=== PATIENT | female | born 1985 | race Caucasian/White ===

== ENCOUNTER 2021-03-19 20:18 | Emergency (ER) | payer OTHER ==
[~2021-03-19] VITALS: Ht 175.3 cm; Wt 117.9 kg
[~2021-03-19 20:18] MED LIST: CEPHALEXIN500 MG PO; KEFLEX500 MG PO; LEVOTHYROXINE175 MCG PO; LEVOTHYROXINE200 MCG PO; LEVOTHYROXINE75 MCG PO; NORCO 5-325 TA1 EACH PO; SEPTRA DS TABL1 EACH PO
[2021-03-19] MEDS ORDERED: LISINOPRIL10 MG PO (20:38)
== END 2021-03-19 21:14 | disposition home or self-care (01) ==
LOC: ED 20:18
DX: S60.222A Contusion of left hand, initial encounter (principal); W01.10XA Fall on same level from slipping, tripping and stumbling with subsequent striking against unspecified object, initial encounter; F17.200 Nicotine dependence, unspecified, uncomplicated; Z79.899 Other long term (current) drug therapy
CPT/HCPCS: 73130; 99283-25

== ENCOUNTER 2022-01-28 03:47 | Emergency (ER) | payer OTHER ==
[~2022-01-28] VITALS: Ht 175.3 cm; Wt 108.9 kg
[~2022-01-28 03:47] MED LIST changes: +LISINOPRIL10 MG PO
--- OUTSIDE RECORDS SUMMARY | 2022-01-28 03:56 | XMS ---
PreManage Notification: SARAHI NI Security Social Work Administrator Events No recent Security Events currently on file CRITERIA MET - ED - Positive COVID-19 Lab Result - [facility] PHONE: [phone] KELSEY FREEMAN Nurse Practitioner: [facility] PHONE: [phone] [facility] has no Care Guidelines for this patient. [facility] VISIT COUNT (12 MO.) 2 OLYA Rivas TOTAL 2 NOTE: Visits indicate total known visits. ED/UCC VISIT TRACKING (12 MO.) 01/28/2022 03:48 [facility] [place] TYPE: Emergency COMPLAINT: - HEAD PAIN 03/19/2021 20:18 [facility] [place] TYPE: Emergency COMPLAINT: - L HAND INJURY DIAGNOSES: - Fall on same level from slipping, tripping and stumbling with subsequent striking against unspecified object, initial encounter - Other senior living (current) drug therapy - Contusion of left hand, initial encounter - Nicotine dependence, unspecified, uncomplicated INPATIENT VISIT TRACKING (12 MO.) No inpatient visits to display in this time frame [email or web address]
[2022-01-28] MEDS ORDERED: AMOX TR-K CLV1 EAC1 PO (04:19)
== END 2022-01-28 04:29 | disposition home or self-care (01) ==
LOC: ED 03:47
DX: K02.9 Dental caries, unspecified (principal); Z85.850 Personal history of malignant neoplasm of thyroid; F17.200 Nicotine dependence, unspecified, uncomplicated; Z91.018 Allergy to other foods; Z79.899 Other long term (current) drug therapy
CPT/HCPCS: 99282

== ENCOUNTER 2025-01-08 20:11 | Emergency (ER) | payer OTHER ==
[~2025-01-08] VITALS: Ht 175.3 cm; Wt 119.7 kg
[~2025-01-08 20:11] MED LIST changes: +AMOX TR-K CLV1 EAC1 PO
[2025-01-08] MEDS ORDERED: NITROGLYCERIN PACKET TOP ONE (20:30)
[2025-01-08] MEDS ORDERED: ASPIRIN 81 MG CHEW PO ONE (20:30)
[2025-01-08 20:31] LABS: HEMOGLOBIN 10.4 g/dL (12.0-18.0)
[2025-01-08 20:33] LABS: BASOPHILS 0.9 % (0-2); EOSINOPHILS 2.7 % (0-6); HEMATOCRIT 32.9 % (35.0-50.0); LYMPHOCYTES 12.8 % (24-44); MCH 25.1 (27-36); MCHC 31.6 g/dl (30-36); MCV 79.4 fl (81-99); MONOCYTES 10.2 % (0-12); NEUTROPHILS 73.4 % (39-80); PLATELET COUNT 477 K/uL (140-440); RBC 4.15 M/ul (4.3-5.7); RDW 19.8 (10.5-15.0)
[2025-01-08 20:44] LABS: INR 0.85 (0.80-1.30); PROTIME 11.6 Sec (11.2-14.2)
[2025-01-08 20:56] LABS: ALBUMIN 3.7 g/dL (3.4-5.0); ALBUMIN/GLOBULIN RATIO 0.86 (1.1-2.4); ANION GAP 13.9 (7-21); BILIRUBIN, TOTAL 0.4 ng/dL (0.2-1.0); BUN/CREATININE RATIO 10.9 (6.0-28.6); CALCIUM 9.6 mg/dL (8.5-10.1); CREATININE, SERUM 1.1 mg/dL (0.55-1.02); MAGNESIUM 1.8 mg/dL (1.8-2.4); POTASSIUM 3.9 mmol/L (3.5-5.1)
[2025-01-08] MEDS ORDERED: HEParin SOD (PORCINE) 5,000 UNIT/ML VIAL IV ONE (21:15)
[2025-01-08] MEDS ORDERED: MORPHINE SULFATE 4 MG/ML VIAL IV ONE ×2 (21:15→21:30)
[2025-01-08] MEDS ORDERED: HEPARIN SOD,PORK IN 0.45% NACL 500 ML IV SCH (21:15)
[2025-01-08] MEDS ORDERED: NITROGLYCERIN 50MG/D5W 250 ML IV SCH (22:00)
[2025-01-09 01:49] VITALS: BP 119/82
--- NOTE | 2025-01-11 22:52 | EKG ---
[facility] [address] [facility] [place] [address] Signed Sinus rhythm with marked sinus arrhythmia Nonspecific ST abnormality Abnormal ECG No previous ECGs available Confirmed by Valery Hill MD () on 01/11/2025 10:52:18 PM Electronically Signed By: VALERY HILL MD 01/11/25 225 PATIENT NAME: SARAHI NI Electrocardiogram DATE OF : 81 PHYSICIAN: VALERY HILL MD REPORT #: [id number] REPORT IS CONFIDENTIAL AND NOT TO BE RELEASED WITHOUT AUTHORIZATION
== END 2025-01-09 01:52 | disposition short-term general hospital (02) ==
LOC: ED 20:11
PROVIDERS: Family Medicine
DX: I21.4 Non-ST elevation (NSTEMI) myocardial infarction (principal); I10 Essential (primary) hypertension; E03.9 Hypothyroidism, unspecified; F17.200 Nicotine dependence, unspecified, uncomplicated; Z91.018 Allergy to other foods; Z79.890 Hormone replacement therapy; Z79.899 Other long term (current) drug therapy
CPT/HCPCS: 36415; 71045; 80053; 83735; 83880; 84484; 85025; 85379; 85610; 93005; 93010; 96374; 96375; 99285-25; A9270; J1644; J2270